=== PATIENT | female | born 1995 | race Caucasian/White ===

== ENCOUNTER 2017-04-11 06:24 | Inpatient (IN) | payer OTHER ==
[~2017-04-11] VITALS: Ht 157.5 cm; Wt 55.8 kg
--- NOTE | 2017-04-11 07:05 | RAD ---
INDICATION: RLQ PAIN ABNORMAL CT COMPARISON: CT from earlier same day TECHNIQUE: Grayscale and color ultrasound images uterus and adnexa. Transabdominal and transvaginal images obtained. FINDINGS: Uterus: 74 x 51 x 42 mm. Endometrial Stripe: 11 mm. Right Ovary: 45 x 38 x 37 mm. Left Ovary: 25 x 15 x 12 mm. Vascular flow identified to bilateral ovaries. Moderate free fluid is seen within the pelvis. Within the right adnexa there is a mixed echogenicity but predominantly hypoechoic lesion identified measuring approximately 35 x 34 mm. IMPRESSION: 1. Vascular flow seen to the bilateral ovaries. 2. Free fluid is seen within the pelvis. 3. There is a mixed echogenicity lesion within the right adnexa. The most likely cause would be a hemorrhagic cyst but other etiologies such as endometrioma are also within the differential. Would also correlate with hCG given the presence of the adnexal lesion. Follow-up could be obtained to ensure that this decreases in size. Electronically signed by: Cameron Stephens MD (04/11/2017 7:02 AM) [facility]
[2017-04-11] MEDS: IV NORMAL SALINE 1000ML BAG 1,000 ML IV SCH (07:27)
[2017-04-11] MEDS: MORPHINE SULFATE 2 MG/ML DISP.SYRIN. IV PRN ×5 (07:28→18:08)
[2017-04-11] MEDS: ONDANSETRON PF 4 MG/2 ML VIAL. IV PRN ×3 (07:28→19:29)
--- NOTE | 2017-04-11 08:51 | PDOC2 ---
CONSULT Date of Consult Date of Consult DATE: 04/11/17 TIME: 08:46 History of Present Illness Reason for Visit: 22 year old female who reports vomiting for about a week, then developed abdominal pain last night most prominent in the mid abdomen and RLQ. The pain has no exacerbating factors, improved with pain meds, denies fevers, chills. She reported to [facility] and was then transferred. Past Medical History Past Medical History "skeletal pain" Past Surgical History Past Surgical History wisdom teeth Social History <1 pack per day ALCOHOL: rare Current Medications Current Medications Current Medications Sodium Chloride 1,000 ml @ 75 mls/hr [id number] IV Last administered on 07:27; Start 04/11/17 at 07:00 Ondansetron HCl (Zofran) 4 mg PRN Q6HRS PRN IV NAUSEA/VOMITING Last administered on 04/11/17 07:28; Start 04/11/17 at 07:00 Morphine Sulfate 2 mg PRN Q2HR PRN IV PAIN Last administered on 04/11/17 07:28 ; Start 04/11/17 at 07:00 Allergies Allergies: Coded Allergies: No Known Drug Allergies (Unverified , 04/11/17) ROS General: No: Chills, Night Sweats, Fatigue, Malaise, Appetite, Other PSYCHOLOGICAL ROS: No: Anxiety, Behavioral Disorder, Concentration difficultie , Decreased libido, Depression, Disorientation, Hallucinations, Hostility, Irritablity, Memory difficulties, Mood Swings, Obsessive thoughts, Physical abuse, Sexual abuse, Sleep disturbances, Suicidal ideation, Other Eyes: No Blurry vision, No Decreased vision, No Double vision, No Dry eyes, No Excessive tearing, No Eye Pain, No Itchy Eyes, No Loss of vision, No Photophobia , No Scotomata, No Uses contacts, No Uses glasses, No Other HEENT: No: Heacaches, Visual Changes, Hearing change, Nasal congestion, Nasal discharge, Oral lesions, Sinus pain, Sore Throat, Epistaxis, Sneezing, Snoring, Tinnitus, Vertigo, Vocal changes, Other ALLERGY AND IMMUNOLOGY: No: Hives, Insect Bite Sensitivity, Itchy/Watery Eyes, Nasal Congestion, Post Nasal Drip, Seasonal Allergies, Other Hematological and Lymphatic: No: Bleeding Problems, Blood Clots, Blood Transfusions, Brusing, Night Sweats, Pallor, Swollen Lymph Nodes, Other ENDOCRINE: No: Breast Changes, Galactorrhea, Hair Pattern Changes, Hot Flashes , Malaise/lethargy, Mood Swings, Palpitations, Polydipsia/polyuria, Skin Changes , Temperature Intolerance, Unexpected Weight Changes, Other Respiratory: No: Cough, Hemoptysis, Orthopnea, Pleuritic Pain, Shortness of breath, SOB with excertion, Sputum Changes, Stridor, Tachypnea, Wheezing, Other Cardiovascular: No Chest Pain, No Palpitations, No Orthopnea, No Paroxysmal Noc. Dyspnea, No Edema, No Lt Headedness, No Other Gastrointestinal: Yes Nausea, Yes Vomiting, Yes Abdominal Pain Genitourinary: No Dysuria, No Frequency, No Incontinence, No Hematuria, No Retention, No Discharge, No Urgency, No Pain, No Flank Pain, No Other, No , No , No , No , No , No , No Musculoskeletal: No Gait Disturbance, No Joint Pain, No Joint Stiffness, No Joint Swelling, No Muscle Pain, No Muscular Weakness, No Pain In:, No Swelling In:, No Other Neurological: No Behavorial Changes, No Bowel/Bladder ControlChng, No Confusion , No Dizziness, No Gait Disturbance, No Headaches, No Impaired Coord/balance, No Memory Loss, No Numbness/Tingling, No Seizures, No Speech Problems, No Tremors, No Visual Changes, No Weakness, No Other Skin: No Dry Skin, No Eczema, No Hair Changes, No Lumps, No Mole Changes, No Mottling, No Nail Changes, No Pruritus, No Rash, No Skin Lesion Changes, No Other, No Acne Physical Exam General: Alert, Oriented X3 HEENT: Atraumatic Lungs: Clear to auscultation Abdomen: Soft (tender with palpation fairly diffusely, reports worse in RLQ, poss voluntary guarding) Extremities: No clubbing, No cyanosis Skin: No rashes, No breakdown Neuro: Normal gait Psych/Mental Status: Mental status NL MUSCULOSKELETAL: No joint tenderness, No deformity Vitals VITALS Vital Signs Date Time Temp Pulse Resp B/P (MAP) Pulse Ox O2 Delivery O2 Flow Rate FiO2 04/11/17 07:49 20 04/11/17 07:39 Room Air Images Images [facility] at [facility]; no inflammatory process, prox appendix normal, distal appendix difficult to visualize Assessment/Plan Assessment/Plan Abdominal pain, vomiting; It is difficult to be certain but her exam, labs, and CT do not seem consistent with acute appendicitis. She understands that testing is not definitive. No other etiology for her pain identified. Recommend repeat CBC today and in AM; if pain persists then will repeat CT scan with IV and oral contrast. TOSHIA VILLEDA MD Apr 11, 2017 08:51
[2017-04-11 10:03] LABS: BASO % 1 % (0-3); EOS % 3 % (0-3); LYMPH % 37 % (24-48); MEAN CORPUSCULAR HEMOGLOBIN 30 pg (25-35); MEAN CORPUSCULAR HGB CONC 33 g/dL (31-37); MEAN CORPUSCULAR VOLUME 89 fL (79-100); MONO % 11 % (0-9); NEUT % 50 % (31-73); PLATELET COUNT 274 x10^3/uL (140-400); RED BLOOD COUNT 4.05 x10^6/uL (3.50-5.40); RED CELL DISTRIBUTION WIDTH 12.5 % (11.5-14.5); WHITE BLOOD COUNT 8.2 x10^3/uL (4.0-11.0)
[2017-04-11 11:00] VITALS: BP 103/56
[2017-04-11 15:00] VITALS: BP 129/84
[2017-04-11] MEDS ORDERED: MORPHINE SULFATE 2 MG/ML DISP.SYRIN. IV PRN (15:15)
[2017-04-11] MEDS ORDERED: oxyCODONE IR 5 MG TABLET PO PRN (15:15)
--- NOTE | 2017-04-11 15:59 | HP ---
ADMIT DATE: 04/11/2017 CHIEF COMPLAINT: Left lower quadrant pain. HISTORY OF PRESENT ILLNESS: The patient is a 22-year-old woman in excellent state of health, who presented to the Emergency Room at [facility] with a 1-week history of abdominal pain. She related that initially it was kind of in her mid abdomen around the umbilicus, but with time settled in her right pelvic area. Pain is very severe. She endorses mild nausea, no vomiting, has normal palish bowel movement. Her periods completed about a week ago. She never has had pain like this before. She endorses subjective fevers as well as rigors towards the weekend, especially on Tuesday. Pain currently is not optimally controlled. PAST MEDICAL HISTORY: Back pain, currently being worked up. FAMILY HISTORY: No GI or MARBLE CLEANER problems known. 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 Smokes occasional cigarettes. No other drugs. ALLERGIES: No known drug allergies. MEDICATIONS: None. REVIEW OF SYSTEMS: Positive as per HPI. Rest of organ system review is essentially negative. PHYSICAL EXAMINATION: VITAL SIGNS: From today show a blood pressure of 103/56, heart rate of 80, respiratory rate at 18. She is afebrile. GENERAL: This is a 22-year-old woman, slim, alert and oriented, in moderate distress secondary to abdominal pain. She is lying in the bed in the position. HEENT: Shows no scleral icterus. NECK: Supple. LUNGS: Clear to auscultation bilaterally. HEART: Has regular rate and rhythm. ABDOMEN: Has positive bowel sounds, soft, moderate to marked tenderness to palpation, with moderate rebound throughout the abdomen. EXTREMITIES: Show no edema. SKIN: Warm, soft and dry. LABORATORY DATA: CBC with a WBC of 8.2, hemoglobin 12.0, platelets of 274. Chemistries at [facility] were within normal limits. Beta hCG negative. IMAGING: CT at [facility] without any significant findings to suggest appendicitis. Pelvic ultrasound obtained here showed vascular flow in bilateral ovaries, free fluid in the pelvis and a mixed echogenicity lesion within the right adnexa measuring 35 x 34 mm. ASSESSMENT AND PLAN: The patient is a 22-year-old presenting with severe pelvic pain. Findings point towards an ovarian origin. The probability of lesion being a hemorrhagic cyst is high, especially given free fluid in the pelvis. We will obtain a MARBLE CLEANER consult as well. General Surgery has seen her already. With no findings pointing towards appendicitis, surgery should not be first choice. Recommendations for observation were given. Pain control is difficult. We will increase morphine. I prefer, however, oxycodone as this lasts a little longer. A range of medication dosing was ordered. EMERY ZHAO MD DR: MOISÉS/ger JOB#: [id number] / [id number] GATO
[2017-04-11] MEDS ORDERED: oxyCODONE/APAP 5/325 1 TAB TABLET PO PRN (18:00)
--- NOTE | 2017-04-11 18:00 | PDOC2 ---
CONSULT Date of Consult Date of Consult DATE: 04/11/17 TIME: 17:54 Reason for Consult Reason for Consult: pelvic pain Referring Physician Referring Physician: Dr. Allen Identification/Chief Complaint Chief Complaint pelvic pain Problems: Source Source: Chart review, Patient History of Present Illness Reason for Visit: 22 y/o G0 presented to ED with c/o severe pelvic pain that started yesterday and continued to worsen. She also reports N/V and night sweats. Pt. denies fever, CP, SOB, dysuria, hematuria or change in bowel habits. Normal LMP . Menses every 30 days and lasts 5 days. No current control. Pelvic sono indicates complex ROV cyst with fluid in culde sac. Past Surgical History Past Surgical History: No pertinent history Social History <1 pack per day ALCOHOL: rare Current Medications Current Medications Current Medications Sodium Chloride 1,000 ml @ 75 mls/hr [id number] IV Last administered on 07:27; Start 04/11/17 at 07:00 Ondansetron HCl (Zofran) 4 mg PRN Q6HRS PRN IV NAUSEA/VOMITING Last administered on 04/11/17 12:24; Start 04/11/17 at 07:00 Morphine Sulfate 2 mg PRN Q2HR PRN IV PAIN Last administered on 04/11/17 15:10 ; Start 04/11/17 at 07:00; Stop 04/11/17 at 15:11; Status DC Morphine Sulfate 2 mg PRN Q2HR PRN IV PAIN - 2nd choice; Start 04/11/17 at 15: 15 Oxycodone HCl (Roxicodone) 5 mg Q4HRS PRN PO PAIN 1st choice Last administered on 04/11/17 16:12; Start 04/11/17 at 15:15 Morphine Sulfate 4 mg PRN Q2HR PRN IV PAIN - 2nd choice; Start 04/11/17 at 15: 15 Oxycodone HCl (Roxicodone) 10 mg Q4HRS PRN PO PAIN 1st choice; Start 04/11/17 at 15:15 Allergies Allergies: Coded Allergies: No Known Drug Allergies (Unverified , 04/11/17) ROS General: YES: Night Sweats, No: Chills, Fatigue, Malaise, Appetite, Other PSYCHOLOGICAL ROS: No: Anxiety, Behavioral Disorder, Concentration difficultie , Decreased libido, Depression, Disorientation, Hallucinations, Hostility, Irritablity, Memory difficulties, Mood Swings, Obsessive thoughts, Physical abuse, Sexual abuse, Sleep disturbances, Suicidal ideation, Other Eyes: No Blurry vision, No Decreased vision, No Double vision, No Dry eyes, No Excessive tearing, No Eye Pain, No Itchy Eyes, No Loss of vision, No Photophobia , No Scotomata, No Uses contacts, No Uses glasses, No Other HEENT: No: Heacaches, Visual Changes, Hearing change, Nasal congestion, Nasal discharge, Oral lesions, Sinus pain, Sore Throat, Epistaxis, Sneezing, Snoring, Tinnitus, Vertigo, Vocal changes, Other ALLERGY AND IMMUNOLOGY: No: Hives, Insect Bite Sensitivity, Itchy/Watery Eyes, Nasal Congestion, Post Nasal Drip, Seasonal Allergies, Other Hematological and Lymphatic: No: Bleeding Problems, Blood Clots, Blood Transfusions, Brusing, Night Sweats, Pallor, Swollen Lymph Nodes, Other ENDOCRINE: No: Breast Changes, Galactorrhea, Hair Pattern Changes, Hot Flashes , Malaise/lethargy, Mood Swings, Palpitations, Polydipsia/polyuria, Skin Changes , Temperature Intolerance, Unexpected Weight Changes, Other Breast: No New/Changing Breast Lumps, No Nipple changes, No Nipple discharge, No Other Respiratory: No: Cough, Hemoptysis, Orthopnea, Pleuritic Pain, Shortness of breath, SOB with excertion, Sputum Changes, Stridor, Tachypnea, Wheezing, Other Cardiovascular: No Chest Pain, No Palpitations, No Orthopnea, No Paroxysmal Noc. Dyspnea, No Edema, No Lt Headedness, No Other Gastrointestinal: Yes Nausea, Yes Vomiting, Yes Abdominal Pain, No Diarrhea, No Constipation, No Melena, No Hematochezia, No Other Genitourinary: No Dysuria, No Frequency, No Incontinence, No Hematuria, No Retention, No Discharge, No Urgency, No Pain, No Flank Pain, No Other, No , No , No , No , No , No , No Musculoskeletal: No Gait Disturbance, No Joint Pain, No Joint Stiffness, No Joint Swelling, No Muscle Pain, No Muscular Weakness, No Pain In:, No Swelling In:, No Other Neurological: No Behavorial Changes, No Bowel/Bladder ControlChng, No Confusion , No Dizziness, No Gait Disturbance, No Headaches, No Impaired Coord/balance, No Memory Loss, No Numbness/Tingling, No Seizures, No Speech Problems, No Tremors, No Visual Changes, No Weakness, No Other Skin: No Dry Skin, No Eczema, No Hair Changes, No Lumps, No Mole Changes, No Mottling, No Nail Changes, No Pruritus, No Rash, No Skin Lesion Changes, No Other, No Acne Physical Exam General: Alert, Oriented X3, Cooperative HEENT: Atraumatic Lungs: Clear to auscultation Heart: Regular rate Abdomen: Soft, No masses, Other (gaurding and rebound tenderness in lower abd region.) Vitals VITALS Vital Signs Date Time Temp Pulse Resp B/P (MAP) Pulse Ox O2 Delivery O2 Flow Rate FiO2 04/11/17 16:12 Room Air 04/11/17 15:00 98.0 74 18 129/84 (99) 97 98.0 Labs Labs Laboratory Tests Test 04/11/17 09:40 White Blood Count 8.2 x10^3/uL (4.0-11.0) Red Blood Count 4.05 x10^6/uL (3.50-5.40) Hemoglobin 12.0 g/dL (12.0-15.5) Hematocrit 36.0 % (36.0-47.0) Mean Corpuscular Volume 89 fL (79-100) Mean Corpuscular Hemoglobin 30 pg (25-35) Mean Corpuscular Hemoglobin Concent 33 g/dL (31-37) Red Cell Distribution Width 12.5 % (11.5-14.5) Platelet Count 274 x10^3/uL (140-400) Neutrophils (%) (Auto) 50 % (31-73) Lymphocytes (%) (Auto) 37 % (24-48) Monocytes (%) (Auto) 11 % (0-9) Eosinophils (%) (Auto) 3 % (0-3) Basophils (%) (Auto) 1 % (0-3) Neutrophils # (Auto) 4.1 x10^3uL (1.8-7.7) Lymphocytes # (Auto) 3.0 x10^3/uL (1.0-4.8) Monocytes # (Auto) 0.9 x10^3/uL (0.0-1.1) Eosinophils # (Auto) 0.2 x10^3/uL (0.0-0.7) Basophils # (Auto) 0.0 x10^3/uL (0.0-0.2) Laboratory Tests Test 04/11/17 09:40 White Blood Count 8.2 x10^3/uL (4.0-11.0) Red Blood Count 4.05 x10^6/uL (3.50-5.40) Hemoglobin 12.0 g/dL (12.0-15.5) Hematocrit 36.0 % (36.0-47.0) Mean Corpuscular Volume 89 fL (79-100) Mean Corpuscular Hemoglobin 30 pg (25-35) Mean Corpuscular Hemoglobin Concent 33 g/dL (31-37) Red Cell Distribution Width 12.5 % (11.5-14.5) Platelet Count 274 x10^3/uL (140-400) Neutrophils (%) (Auto) 50 % (31-73) Lymphocytes (%) (Auto) 37 % (24-48) Monocytes (%) (Auto) 11 % (0-9) Eosinophils (%) (Auto) 3 % (0-3) Basophils (%) (Auto) 1 % (0-3) Neutrophils # (Auto) 4.1 x10^3uL (1.8-7.7) Lymphocytes # (Auto) 3.0 x10^3/uL (1.0-4.8) Monocytes # (Auto) 0.9 x10^3/uL (0.0-1.1) Eosinophils # (Auto) 0.2 x10^3/uL (0.0-0.7) Basophils # (Auto) 0.0 x10^3/uL (0.0-0.2) Assessment/Plan Assessment/Plan A: Complex ROV cyst with fluid in culde sac P: Pain management and prep for LPSC ROV cystectomy tomorrow. NPO after midnight. Thank you for consult. LUCRECIA ALONSO Jr, MD Apr 11, 2017 18:00
[2017-04-11 19:00] VITALS: BP 99/55
[2017-04-11] MEDS: oxyCODONE/APAP 5/325 1 TAB TABLET PO PRN (21:24)
[2017-04-11 23:20] VITALS: BP 119/70
[2017-04-12] VITALS (13 sets, daily range): BP systolic 90–126; BP diastolic 34–70
[2017-04-12] MEDS: IV NORMAL SALINE 1000ML BAG 1,000 ML IV SCH ×3 (00:39→23:00)
[2017-04-12] MEDS: MORPHINE SULFATE 2 MG/ML DISP.SYRIN. IV PRN ×4 (02:47→14:38)
[2017-04-12 05:40] LABS: BASO % 1 % (0-3); EOS % 5 % (0-3); HEMATOCRIT 34.6 % (36.0-47.0); HEMOGLOBIN 11.6 g/dL (12.0-15.5); LYMPH # 2.9 x10^3/uL (1.0-4.8); LYMPH % 46 % (24-48); MEAN CORPUSCULAR HEMOGLOBIN 30 pg (25-35); MEAN CORPUSCULAR HGB CONC 33 g/dL (31-37); MEAN CORPUSCULAR VOLUME 89 fL (79-100); MONO % 12 % (0-9); NEUT % 37 % (31-73); PLATELET COUNT 245 x10^3/uL (140-400); RED BLOOD COUNT 3.87 x10^6/uL (3.50-5.40); RED CELL DISTRIBUTION WIDTH 12.3 % (11.5-14.5); WHITE BLOOD COUNT 6.4 x10^3/uL (4.0-11.0)
[2017-04-12] MEDS: ONDANSETRON PF 4 MG/2 ML VIAL. IV PRN (07:24)
--- NOTE | 2017-04-12 09:36 | PDOC ---
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 Labs reviewed, vital signs reviewed - okay sHe requests excuse from work, she works in the plan for a flight back on Tuesday. 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 plAn of care: LPSC ROV cystectomy today Vitals Vitals Vital Signs Date Time Temp Pulse Resp B/P (MAP) Pulse Ox O2 Delivery O2 Flow Rate FiO2 04/12/17 07:55 Room Air 04/12/17 07:00 98.2 84 16 113/70 (84) 99 98.2 Physical Exam General: Alert, Oriented X3, Cooperative Heart: Regular rate Abdomen: Soft, No masses, Other (gaurding and rebound tenderness in lower abd region.) Extremities: No clubbing, No cyanosis Skin: No rashes, No breakdown Labs LABS Laboratory Tests Test 04/11/17 09:40 04/12/17 05:00 White Blood Count 8.2 x10^3/uL (4.0-11.0) 6.4 x10^3/uL (4.0-11.0) Red Blood Count 4.05 x10^6/uL (3.50-5.40) 3.87 x10^6/uL (3.50-5.40) Hemoglobin 12.0 g/dL (12.0-15.5) 11.6 g/dL (12.0-15.5) Hematocrit 36.0 % (36.0-47.0) 34.6 % (36.0-47.0) Mean Corpuscular Volume 89 fL (79-100) 89 fL (79-100) Mean Corpuscular Hemoglobin 30 pg (25-35) 30 pg (25-35) Mean Corpuscular Hemoglobin Concent 33 g/dL (31-37) 33 g/dL (31-37) Red Cell Distribution Width 12.5 % (11.5-14.5) 12.3 % (11.5-14.5) Platelet Count 274 x10^3/uL (140-400) 245 x10^3/uL (140-400) Neutrophils (%) (Auto) 50 % (31-73) 37 % (31-73) Lymphocytes (%) (Auto) 37 % (24-48) 46 % (24-48) Monocytes (%) (Auto) 11 % (0-9) 12 % (0-9) Eosinophils (%) (Auto) 3 % (0-3) 5 % (0-3) Basophils (%) (Auto) 1 % (0-3) 1 % (0-3) Neutrophils # (Auto) 4.1 x10^3uL (1.8-7.7) 2.4 x10^3uL (1.8-7.7) Lymphocytes # (Auto) 3.0 x10^3/uL (1.0-4.8) 2.9 x10^3/uL (1.0-4.8) Monocytes # (Auto) 0.9 x10^3/uL (0.0-1.1) 0.8 x10^3/uL (0.0-1.1) Eosinophils # (Auto) 0.2 x10^3/uL (0.0-0.7) 0.3 x10^3/uL (0.0-0.7) Basophils # (Auto) 0.0 x10^3/uL (0.0-0.2) 0.0 x10^3/uL (0.0-0.2) Review of Systems Review of Systems Positive for abdominal pain no shortness of breath no chest pain no diarrhea no vomiting no lightheadedness no dizziness Comment Review of Relevant I have reviewed the following items hien (where applicable) has been applied. Labs Laboratory Tests Test 04/11/17 09:40 04/12/17 05:00 White Blood Count 8.2 x10^3/uL (4.0-11.0) 6.4 x10^3/uL (4.0-11.0) Red Blood Count 4.05 x10^6/uL (3.50-5.40) 3.87 x10^6/uL (3.50-5.40) Hemoglobin 12.0 g/dL (12.0-15.5) 11.6 g/dL (12.0-15.5) Hematocrit 36.0 % (36.0-47.0) 34.6 % (36.0-47.0) Mean Corpuscular Volume 89 fL (79-100) 89 fL (79-100) Mean Corpuscular Hemoglobin 30 pg (25-35) 30 pg (25-35) Mean Corpuscular Hemoglobin Concent 33 g/dL (31-37) 33 g/dL (31-37) Red Cell Distribution Width 12.5 % (11.5-14.5) 12.3 % (11.5-14.5) Platelet Count 274 x10^3/uL (140-400) 245 x10^3/uL (140-400) Neutrophils (%) (Auto) 50 % (31-73) 37 % (31-73) Lymphocytes (%) (Auto) 37 % (24-48) 46 % (24-48) Monocytes (%) (Auto) 11 % (0-9) 12 % (0-9) Eosinophils (%) (Auto) 3 % (0-3) 5 % (0-3) Basophils (%) (Auto) 1 % (0-3) 1 % (0-3) Neutrophils # (Auto) 4.1 x10^3uL (1.8-7.7) 2.4 x10^3uL (1.8-7.7) Lymphocytes # (Auto) 3.0 x10^3/uL (1.0-4.8) 2.9 x10^3/uL (1.0-4.8) Monocytes # (Auto) 0.9 x10^3/uL (0.0-1.1) 0.8 x10^3/uL (0.0-1.1) Eosinophils # (Auto) 0.2 x10^3/uL (0.0-0.7) 0.3 x10^3/uL (0.0-0.7) Basophils # (Auto) 0.0 x10^3/uL (0.0-0.2) 0.0 x10^3/uL (0.0-0.2) Laboratory Tests Test 04/11/17 09:40 04/12/17 05:00 White Blood Count 8.2 x10^3/uL (4.0-11.0) 6.4 x10^3/uL (4.0-11.0) Red Blood Count 4.05 x10^6/uL (3.50-5.40) 3.87 x10^6/uL (3.50-5.40) Hemoglobin 12.0 g/dL (12.0-15.5) 11.6 g/dL (12.0-15.5) Hematocrit 36.0 % (36.0-47.0) 34.6 % (36.0-47.0) Mean Corpuscular Volume 89 fL (79-100) 89 fL (79-100) Mean Corpuscular Hemoglobin 30 pg (25-35) 30 pg (25-35) Mean Corpuscular Hemoglobin Concent 33 g/dL (31-37) 33 g/dL (31-37) Red Cell Distribution Width 12.5 % (11.5-14.5) 12.3 % (11.5-14.5) Platelet Count 274 x10^3/uL (140-400) 245 x10^3/uL (140-400) Neutrophils (%) (Auto) 50 % (31-73) 37 % (31-73) Lymphocytes (%) (Auto) 37 % (24-48) 46 % (24-48) Monocytes (%) (Auto) 11 % (0-9) 12 % (0-9) Eosinophils (%) (Auto) 3 % (0-3) 5 % (0-3) Basophils (%) (Auto) 1 % (0-3) 1 % (0-3) Neutrophils # (Auto) 4.1 x10^3uL (1.8-7.7) 2.4 x10^3uL (1.8-7.7) Lymphocytes # (Auto) 3.0 x10^3/uL (1.0-4.8) 2.9 x10^3/uL (1.0-4.8) Monocytes # (Auto) 0.9 x10^3/uL (0.0-1.1) 0.8 x10^3/uL (0.0-1.1) Eosinophils # (Auto) 0.2 x10^3/uL (0.0-0.7) 0.3 x10^3/uL (0.0-0.7) Basophils # (Auto) 0.0 x10^3/uL (0.0-0.2) 0.0 x10^3/uL (0.0-0.2) Medications Current Medications Sodium Chloride 1,000 ml @ 75 mls/hr [id number] IV Last administered on 00:39; Start 04/11/17 at 07:00 Ondansetron HCl (Zofran) 4 mg PRN Q6HRS PRN IV NAUSEA/VOMITING Last administered on 04/12/17 07:24; Start 04/11/17 at 07:00 Morphine Sulfate 2 mg PRN Q2HR PRN IV PAIN Last administered on 04/11/17 15:10 ; Start 04/11/17 at 07:00; Stop 04/11/17 at 15:11; Status DC Morphine Sulfate 2 mg PRN Q2HR PRN IV PAIN - 2nd choice Last administered on 00:40; Start 04/11/17 at 15:15 Oxycodone HCl (Roxicodone) 5 mg Q4HRS PRN PO PAIN 1st choice Last administered on 04/11/17 16:12; Start 04/11/17 at 15:15 Morphine Sulfate 4 mg PRN Q2HR PRN IV PAIN - 2nd choice Last administered on 07:29; Start 04/11/17 at 15:15 Oxycodone HCl (Roxicodone) 10 mg Q4HRS PRN PO PAIN 1st choice; Start 04/11/17 at 15:15 Oxycodone/ Acetaminophen (Percocet 5/325) 1 tab PRN Q4HRS PRN PO PAIN; Start 04/11/17 at 18:00 Oxycodone/ Acetaminophen (Percocet 5/325) 2 tab PRN Q4HRS PRN PO PAIN Last administered on 04/11/17 21:24; Start 04/11/17 at 18:00 Vitals/I & O Vital Sign - Last 24 Hours 04/11/17 04/11/17 04/11/17 04/11/17 09:43 11:00 12:26 14:00 Temp 98.3 98.3 Pulse 80 Resp 18 B/P (MAP) 103/56 (72) Pulse Ox 97 O2 Delivery Room Air Room Air Room Air Room Air 04/11/17 04/11/17 04/11/174/17 15:00 15:10 16:12 17:30 Temp 98.0 98.0 Pulse 74 Resp 18 B/P (MAP) 129/84 (99) Pulse Ox 97 O2 Delivery Room Air Room Air Room Air Room Air 04/11/17 04/11/17 04/11/17 04/11/17 18:08 18:40 19:00 19:30 Temp 98.4 98.4 Pulse 75 Resp 18 18 B/P (MAP) 99/55 (70) Pulse Ox 98 O2 Delivery Room Air Room Air Room Air 04/11/17 04/11/17 04/11/17 04/12/17 21:24 22:25 23:20 00:40 Temp 98.8 98.8 Pulse 73 Resp 16 18 18 18 B/P (MAP) 119/70 (86) Pulse Ox 99 O2 Delivery Room Air Room Air Room Air Room Air 04/12/17 04/12/17 04/12/17 04/12/17 01:10 02:47 02:55 04:50 Temp 97.7 97.7 Pulse 73 Resp 18 18 18 16 B/P (MAP) 106/42 (63) Pulse Ox 97 O2 Delivery Room Air Room Air Room Air Room Air 04/12/17 04/12/17 04/12/17 04/12/17 07:00 07:29 07:30 07:55 Temp 98.2 98.2 Pulse 84 Resp 16 B/P (MAP) 113/70 (84) Pulse Ox 99 O2 Delivery Room Air Room Air Room Air Room Air Intake and Output 04/11/17 04/11/17 04/12/17 15:00 23:00 07:00 Intake Total 120 ml 1422 ml Balance 120 ml 1422 ml ANNIE LEDEZMA MD Apr 12, 2017 09:36
[2017-04-12] MEDS ORDERED: MIDAZOLAM HCL/PF 2 MG/2 ML VIAL. ONE (10:01)
[2017-04-12] MEDS ORDERED: LIDOCAINE 2% PF Vial for OR 5 ML VIAL. ONE (10:02)
[2017-04-12] MEDS ORDERED: FAMOTIDINE 20 MG/2 ML VIAL ONE (10:02)
[2017-04-12] MEDS ORDERED: ONDANSETRON PF 4 MG/2 ML VIAL. ONE (10:02)
[2017-04-12] MEDS ORDERED: fentaNYL PF VIAL 100 MCG/2 ML VIAL ONE (10:02)
[2017-04-12] MEDS ORDERED: PROPOFOL 20 ML IV ONE (10:02)
[2017-04-12] MEDS ORDERED: ISOFLURANE 61 TO 120 MINUTES. IH ONE (10:02)
[2017-04-12] MEDS ORDERED: DEXAMETHASONE SOD PHOS 20 MG/5 ML VIAL. ONE (10:02)
[2017-04-12] MEDS ORDERED: ROCURONIUM 50 MG/5 ML VIAL. ONE (10:02)
[2017-04-12] MEDS ORDERED: BUPIVAC MPF-EPI 0.5%-1:200000 30 ML VIAL. ONE (11:05)
[2017-04-12] MEDS ORDERED: SURGICEL HEMOSTAT 4X8 EACH. ONE (11:05)
[2017-04-12] MEDS ORDERED: IV RINGERS,LACTATED 1000ML 1,000 ML IV SCH (11:29)
[2017-04-12] MEDS ORDERED: HYDROmorphone 2 MG/ML VIAL IV PRN (11:30)
[2017-04-12] MEDS ORDERED: fentaNYL PF VIAL 100 MCG/2 ML VIAL IV PRN (11:30)
[2017-04-12] MEDS ORDERED: ONDANSETRON PF 4 MG/2 ML VIAL. IV PRN (11:30)
[2017-04-12] MEDS ORDERED: PROCHLORPERAZINE 10 MG/2 ML VIAL. IV PRN (11:30)
[2017-04-12] MEDS ORDERED: LIDOCAINE 1% PF 2 ML VIAL. ID PRN (11:30)
[2017-04-12] MEDS ORDERED: MORPHINE SULFATE 2 MG/ML DISP.SYRIN. IV PRN (11:30)
[2017-04-12] MEDS ORDERED: NEOSTIGMINE 10 MG/10 ML VIAL. ONE (13:02)
[2017-04-12] MEDS ORDERED: GLYCOPYRROLATE 1 MG/5 ML VIAL. ONE (13:03)
--- NOTE | 2017-04-12 13:21 | PDOC ---
BRIEF OPERATIVE NOTE Date: Apr 12, 2017 Pre-Op Diagnosis ROV cyst Post-Op Diagnosis Same Procedure Performed [facility] ROV Cystectomy Surgeon Dr. Madison Anesthesia Type: General Blood Loss Less than 10 ml Specimens Obtained ROV cyst wall Findings nml size uterus, nml fallopian tubes zoila., nml WILMAN; ROV cyst 6 cm size Complications none Operative Note see dictation LUCRECIA MADISON Jr, MD Apr 12, 2017 13:21
--- NOTE | 2017-04-12 13:22 | DISCH ---
DISCHARGE INSTRUCTIONS Condition on Discharge Condition on Discharge: Stable Activity After Discharge Activity Instructions for Disc: Activity as tolerated Lifting Instructions after Dis: No heavy lifting Driving Instructions after Dis: Do not drive today Diet after Discharge Diet after Discharge: Regular Contacting the DRRaul after DC Call your doctor for: Concerns you may have Follow-Up Follow up with: Logistics Planning Engineer in 1 week at outside location since traveling this weekend . LUCRECIA ALONSO Jr, MD Apr 12, 2017 13:22
[2017-04-12] MEDS: fentaNYL PF VIAL 100 MCG/2 ML VIAL IV PRN ×2 (13:33→14:08)
--- NOTE | 2017-04-12 14:23 | OP ---
DATE OF SURGERY: PREOPERATIVE DIAGNOSIS: Right ovarian cyst. POSTOPERATIVE DIAGNOSIS: Right ovarian cyst. PROCEDURE: Laparoscopic right ovarian cystectomy. SURGEON: Yair Madison MD. ANESTHESIA: GETA. ESTIMATED BLOOD LOSS: Less than 10 mL. COMPLICATIONS: None. FINDINGS: Normal sized uterus, normal fallopian tubes bilaterally, normal left ovary. Right ovarian cyst of about 6 cm size. Appendix appeared normal. COMPLICATIONS: None. SUMMARY: A 22-year-old 0 who presented in abdominal pain. The patient was then found to have a complex right ovarian cyst with possible fluid in the abdomen. The patient was counseled on the risks, benefits and expectations for laparoscopic right ovarian cystectomy and desired to proceed. DESCRIPTION OF PROCEDURE: The patient was taken to surgery suite and placed in dorsal lithotomy position. She was prepped with Betadine like vaginal prep and ChloraPrep for abdominal prep. Barron speculum was placed vaginally. Anterior lip of cervix grasped with single tooth tenaculum. Uterine acorn manipulator was then placed. The bivalve speculum was removed. Attention was now placed on abdomen. Small transverse skin incision made with scalpel just below the umbilicus. The Veress needle was then placed through the infraumbilical incision site. The abdomen was allowed to insufflate up to 1-1/2 liters CO2 gas. The Veress needle was then removed. A 5 mm trocar was placed. The scope was positioned. The uterus appeared normal size. Fallopian tubes appeared normal bilaterally. Left ovary appeared normal. Right ovary demonstrated 6 cm size cyst. The appendix appeared normal. Two incisions were made in the left lower quadrant with a scalpel, in which an 8-mm and 5 mm trocars were placed. With aid of graspers and the EndoShears, the right ovarian cyst was incised and drained with suction irrigation of clear fluid. A portion of the cyst wall was removed with the aid of EndoShears with cautery. The remaining cyst wall was fulgurated with monopolar cautery. The area was hemostatic. This was verified with suction irrigation, small amount of normal saline was left in posterior cul-de-sac. The trocars were then removed under direct visualization. The abdomen was allowed to deflate as much as possible along with mechanical manipulation. The three skin incisions were reapproximated using 4-0 Vicryl suture in subcuticular manner. 0.5% lidocaine with epinephrine was injected at each incision site. The uterine acorn manipulator and single tooth tenaculum were removed. The patient tolerated procedure well and was taken to recovery room in stable condition. Sponge and needle count correct x 3. YAIR MADISON MD DR: ALL/ger JOB#: [id number] / [id number]
[2017-04-12] MEDS: oxyCODONE/APAP 5/325 1 TAB TABLET PO PRN ×2 (16:42→22:28)
[2017-04-12] MEDS: oxyCODONE IR 5 MG TABLET PO PRN (19:44)
[2017-04-13 03:06] VITALS: BP 90/52
[2017-04-13] MEDS: oxyCODONE IR 5 MG TABLET PO PRN ×2 (03:33→12:42)
[2017-04-13 05:55] LABS: BASO % 0 % (0-3); EOS % 1 % (0-3); HEMATOCRIT 34.7 % (36.0-47.0); HEMOGLOBIN 11.7 g/dL (12.0-15.5); LYMPH # 1.6 x10^3/uL (1.0-4.8); LYMPH % 20 % (24-48); MEAN CORPUSCULAR HEMOGLOBIN 30 pg (25-35); MEAN CORPUSCULAR HGB CONC 34 g/dL (31-37); MEAN CORPUSCULAR VOLUME 89 fL (79-100); MONO % 9 % (0-9); NEUT % 70 % (31-73); PLATELET COUNT 251 x10^3/uL (140-400); RED BLOOD COUNT 3.93 x10^6/uL (3.50-5.40); RED CELL DISTRIBUTION WIDTH 12.5 % (11.5-14.5); WHITE BLOOD COUNT 7.8 x10^3/uL (4.0-11.0)
[2017-04-13 06:29] LABS: CALCIUM 8.3 mg/dL (8.5-10.1); CREATININE 0.7 mg/dL (0.6-1.0); GFR 104.6; POTASSIUM 3.7 mmol/L (3.5-5.1)
[2017-04-13 07:00] VITALS: BP 110/63
[2017-04-13] MEDS: oxyCODONE/APAP 5/325 1 TAB TABLET PO PRN ×2 (07:43→15:50)
[2017-04-13 11:00] VITALS: BP 102/55
[2017-04-13] MEDS: IV NORMAL SALINE 1000ML BAG 1,000 ML IV SCH (12:20)
--- NOTE | 2017-04-13 14:50 | PDOC ---
PROGRESS NOTES Chief Complaint Chief Complaint Complex ROV cyst Pelvic pain Abdominal pain History of Present Illness History of Present Illness Pt was seen at the bedside. She was sitting up in bed, dressed in hospital attire. She still has some abdominal pain, with some nausea. Vitals Vitals Vital Signs Date Time Temp Pulse Resp B/P (MAP) Pulse Ox O2 Delivery O2 Flow Rate FiO2 04/13/17 12:42 97 Room Air 04/13/17 11:00 97.7 74 18 102/55 (71) 97.7 04/12/17 20:00 10.0 Physical Exam Physical Exam Psych: Mood stated as "good", affect slightly blunted Eyes: sclera anicteric, no conjunctival injection General: Alert, Cooperative, No acute distress Extremities: No clubbing, No cyanosis Skin: No rashes, No breakdown Labs LABS Laboratory Tests Test 04/13/17 05:15 White Blood Count 7.8 x10^3/uL (4.0-11.0) Red Blood Count 3.93 x10^6/uL (3.50-5.40) Hemoglobin 11.7 g/dL (12.0-15.5) Hematocrit 34.7 % (36.0-47.0) Mean Corpuscular Volume 89 fL (79-100) Mean Corpuscular Hemoglobin 30 pg (25-35) Mean Corpuscular Hemoglobin Concent 34 g/dL (31-37) Red Cell Distribution Width 12.5 % (11.5-14.5) Platelet Count 251 x10^3/uL (140-400) Neutrophils (%) (Auto) 70 % (31-73) Lymphocytes (%) (Auto) 20 % (24-48) Monocytes (%) (Auto) 9 % (0-9) Eosinophils (%) (Auto) 1 % (0-3) Basophils (%) (Auto) 0 % (0-3) Neutrophils # (Auto) 5.5 x10^3uL (1.8-7.7) Lymphocytes # (Auto) 1.6 x10^3/uL (1.0-4.8) Monocytes # (Auto) 0.7 x10^3/uL (0.0-1.1) Eosinophils # (Auto) 0.1 x10^3/uL (0.0-0.7) Basophils # (Auto) 0.0 x10^3/uL (0.0-0.2) Sodium Level 139 mmol/L (136-145) Potassium Level 3.7 mmol/L (3.5-5.1) Chloride Level 105 mmol/L (98-107) Carbon Dioxide Level 25 mmol/L (21-32) Anion Gap 9 (6-14) Blood Urea Nitrogen 6 mg/dL (7-20) Creatinine 0.7 mg/dL (0.6-1.0) Estimated GFR (Cockcroft-Gault) 104.6 Glucose Level 99 mg/dL (70-99) Calcium Level 8.3 mg/dL (8.5-10.1) Review of Systems Review of Systems Admits to some nausea. Denies fever or chills Assessment and Plan Assessmemt and Plan ASSESSMENT: Complex ROV cyst with fluid in culde sac Pelvic pain Abdominal pain PLAN: Appreciate any further input from specialists PT/OT D/C to home Continue home meds Follow up with [facility] Problems: Comment Review of Relevant I have reviewed the following items hien (where applicable) has been applied. Labs Laboratory Tests Test 04/12/17 05:00 04/13/17 05:15 White Blood Count 6.4 x10^3/uL (4.0-11.0) 7.8 x10^3/uL (4.0-11.0) Red Blood Count 3.87 x10^6/uL (3.50-5.40) 3.93 x10^6/uL (3.50-5.40) Hemoglobin 11.6 g/dL (12.0-15.5) 11.7 g/dL (12.0-15.5) Hematocrit 34.6 % (36.0-47.0) 34.7 % (36.0-47.0) Mean Corpuscular Volume 89 fL (79-100) 89 fL (79-100) Mean Corpuscular Hemoglobin 30 pg (25-35) 30 pg (25-35) Mean Corpuscular Hemoglobin Concent 33 g/dL (31-37) 34 g/dL (31-37) Red Cell Distribution Width 12.3 % (11.5-14.5) 12.5 % (11.5-14.5) Platelet Count 245 x10^3/uL (140-400) 251 x10^3/uL (140-400) Neutrophils (%) (Auto) 37 % (31-73) 70 % (31-73) Lymphocytes (%) (Auto) 46 % (24-48) 20 % (24-48) Monocytes (%) (Auto) 12 % (0-9) 9 % (0-9) Eosinophils (%) (Auto) 5 % (0-3) 1 % (0-3) Basophils (%) (Auto) 1 % (0-3) 0 % (0-3) Neutrophils # (Auto) 2.4 x10^3uL (1.8-7.7) 5.5 x10^3uL (1.8-7.7) Lymphocytes # (Auto) 2.9 x10^3/uL (1.0-4.8) 1.6 x10^3/uL (1.0-4.8) Monocytes # (Auto) 0.8 x10^3/uL (0.0-1.1) 0.7 x10^3/uL (0.0-1.1) Eosinophils # (Auto) 0.3 x10^3/uL (0.0-0.7) 0.1 x10^3/uL (0.0-0.7) Basophils # (Auto) 0.0 x10^3/uL (0.0-0.2) 0.0 x10^3/uL (0.0-0.2) Sodium Level 139 mmol/L (136-145) Potassium Level 3.7 mmol/L (3.5-5.1) Chloride Level 105 mmol/L (98-107) Carbon Dioxide Level 25 mmol/L (21-32) Anion Gap 9 (6-14) Blood Urea Nitrogen 6 mg/dL (7-20) Creatinine 0.7 mg/dL (0.6-1.0) Estimated GFR (Cockcroft-Gault) 104.6 Glucose Level 99 mg/dL (70-99) Calcium Level 8.3 mg/dL (8.5-10.1) Laboratory Tests Test 04/13/17 05:15 White Blood Count 7.8 x10^3/uL (4.0-11.0) Red Blood Count 3.93 x10^6/uL (3.50-5.40) Hemoglobin 11.7 g/dL (12.0-15.5) Hematocrit 34.7 % (36.0-47.0) Mean Corpuscular Volume 89 fL (79-100) Mean Corpuscular Hemoglobin 30 pg (25-35) Mean Corpuscular Hemoglobin Concent 34 g/dL (31-37) Red Cell Distribution Width 12.5 % (11.5-14.5) Platelet Count 251 x10^3/uL (140-400) Neutrophils (%) (Auto) 70 % (31-73) Lymphocytes (%) (Auto) 20 % (24-48) Monocytes (%) (Auto) 9 % (0-9) Eosinophils (%) (Auto) 1 % (0-3) Basophils (%) (Auto) 0 % (0-3) Neutrophils # (Auto) 5.5 x10^3uL (1.8-7.7) Lymphocytes # (Auto) 1.6 x10^3/uL (1.0-4.8) Monocytes # (Auto) 0.7 x10^3/uL (0.0-1.1) Eosinophils # (Auto) 0.1 x10^3/uL (0.0-0.7) Basophils # (Auto) 0.0 x10^3/uL (0.0-0.2) Sodium Level 139 mmol/L (136-145) Potassium Level 3.7 mmol/L (3.5-5.1) Chloride Level 105 mmol/L (98-107) Carbon Dioxide Level 25 mmol/L (21-32) Anion Gap 9 (6-14) Blood Urea Nitrogen 6 mg/dL (7-20) Creatinine 0.7 mg/dL (0.6-1.0) Estimated GFR (Cockcroft-Gault) 104.6 Glucose Level 99 mg/dL (70-99) Calcium Level 8.3 mg/dL (8.5-10.1) Medications Current Medications Sodium Chloride 1,000 ml @ 75 mls/hr [id number] IV Last administered on 12:20; Start 04/11/17 at 07:00 Ondansetron HCl (Zofran) 4 mg PRN Q6HRS PRN IV NAUSEA/VOMITING Last administered on 04/12/17 07:24; Start 04/11/17 at 07:00 Morphine Sulfate 2 mg PRN Q2HR PRN IV PAIN Last administered on 04/11/17 15:10 ; Start 04/11/17 at 07:00; Stop 04/11/17 at 15:11; Status DC Morphine Sulfate 2 mg PRN Q2HR PRN IV PAIN - 2nd choice Last administered on 00:40; Start 04/11/17 at 15:15 Oxycodone HCl (Roxicodone) 5 mg Q4HRS PRN PO PAIN 1st choice Last administered on 04/11/17 16:12; Start 04/11/17 at 15:15 Morphine Sulfate 4 mg PRN Q2HR PRN IV PAIN - 2nd choice Last administered on 14:38; Start 04/11/17 at 15:15 Oxycodone HCl (Roxicodone) 10 mg Q4HRS PRN PO PAIN 1st choice Last administered on 04/13/17 12:42; Start 04/11/17 at 15:15 Oxycodone/ Acetaminophen (Percocet 5/325) 1 tab PRN Q4HRS PRN PO PAIN; Start 04/11/17 at 18:00 Oxycodone/ Acetaminophen (Percocet 5/325) 2 tab PRN Q4HRS PRN PO PAIN Last administered on 04/13/17 07:43; Start 04/11/17 at 18:00 Midazolam HCl (Versed) 2 mg STK-MED ONCE .ROUTE ; Start 04/12/17 at 10:01; Stop 04/12/17 at 10:02; Status DC Fentanyl Citrate (Fentanyl 2ml Vial) 100 mcg STK-MED ONCE .ROUTE ; Start at 10:02; Stop 04/12/17 at 10:03; Status DC Rocuronium [place] (Zemuron) 50 mg STK-MED ONCE .ROUTE ; Start 04/12/17 at 10:02 ; Stop 04/12/17 at 10:03; Status DC Isoflurane (Isoflurane) 60 ml STK-MED ONCE IH ; Start 04/12/17 at 10:02; Stop 04/12/17 at 10:03; Status DC Dexamethasone Sodium Phosphate (Decadron) 20 mg STK-MED ONCE .ROUTE ; Start 04/12/17 at 10:02; Stop 04/12/17 at 10:03; Status DC Propofol 20 ml @ As Directed STK-MED ONCE IV ; Start 04/12/17 at 10:02; Stop at 10:03; Status DC Lidocaine HCl (Lidocaine Pf 2% Vial) 5 ml STK-MED ONCE .ROUTE ; Start 04/12/17 at 10:02; Stop 04/12/17 at 10:03; Status DC Ondansetron HCl (Zofran) 4 mg STK-MED ONCE .ROUTE ; Start 04/12/17 at 10:02; Stop 04/12/17 at 10:03; Status DC Famotidine (Pepcid Vial) 20 mg STK-MED ONCE .ROUTE ; Start 04/12/17 at 10:02; Stop 04/12/17 at 10:03; Status DC Bupivacaine HCl/ Epinephrine Bitart (Sensorcain-Mpf Epi 0.5%-1:[id number]) 30 ml STK -MED ONCE .ROUTE Last administered on 04/12/17 12:38; Start 04/12/17 at 11:05 ; Stop 04/12/17 at 11:06; Status DC Cellulose 1 each STK-MED ONCE .ROUTE ; Start 04/12/17 at 11:05; Stop 04/12/17 at 11:06; Status DC Ondansetron HCl (Zofran) 4 mg PRN Q6HRS PRN IV NAUSEA/VOMITING; Start 04/12/17 at 11:30; Stop 04/13/17 at 11:29; Status DC Fentanyl Citrate (Fentanyl 2ml Vial) 25 mcg PRN Q5MIN PRN IV MILD PAIN; Start 04/12/17 at 11:30; Stop 04/13/17 at 11:29; Status DC Fentanyl Citrate (Fentanyl 2ml Vial) 50 mcg PRN Q5MIN PRN IV MODERATE PAIN Last administered on 04/12/17 14:08; Start 04/12/17 at 11:30; Stop 04/13/17 at 11:29; Status DC Morphine Sulfate 1 mg PRN Q10MIN PRN IV SEVERE PAIN; Start 04/12/17 at 11:30; Stop 04/13/17 at 11:29; Status DC Ringer's Solution 1,000 ml @ 30 mls/hr Q24H IV Last administered on 04/12/17 12:45; Start 04/12/17 at 11:29; Stop 04/12/17 at 23:28; Status DC Lidocaine HCl (Xylocaine-Mpf 1% Vial) 2 ml 1X PRN PRN ID IV START; Start at 11:30; Stop 04/13/17 at 11:29; Status DC Hydromorphone HCl (Dilaudid) 0.5 mg PRN Q10MIN PRN IV SEV PAIN, Second choice; Start 04/12/17 at 11:30; Stop 04/13/17 at 11:29; Status DC Prochlorperazine Edisylate (Compazine) 5 mg PACU PRN PRN IV NAUSEA, MRX1 Last administered on 04/12/17 13:34; Start 04/12/17 at 11:30; Stop 04/13/17 at 11:29 ; Status DC Cefazolin Sodium/ Dextrose 50 ml @ As Directed STK-MED ONCE IV ; Start 04/12/17 at 12:07; Stop 04/12/17 at 12:08; Status DC Cefazolin Sodium/ Dextrose 50 ml @ 100 mls/hr 1X ONCE IV Last administered on 04/12/17 12:20; Start 04/12/17 at 12:15; Stop 04/12/17 at 12:44; Status DC Neostigmine Methylsulfate (Bloxiverz) 10 mg STK-MED ONCE .ROUTE ; Start at 13:02; Stop 04/12/17 at 13:03; Status DC Glycopyrrolate (Robinul) 1 mg STK-MED ONCE .ROUTE ; Start 04/12/17 at 13:03; Stop 04/12/17 at 13:04; Status DC Vitals/I & O Vital Sign - Last 24 Hours 04/12/17 04/12/17 04/12/17 04/12/17 14:58 15:00 15:13 15:28 Pulse 71 74 64 Resp 16 16 16 B/P (MAP) 107/61 (76) 97/48 (64) 110/57 (74) Pulse Ox 95 95 98 O2 Delivery Room Air Room Air Room Air Room Air 04/12/17 04/12/17 04/12/17 04/12/17 15:45 15:45 15:58 16:15 Pulse 70 70 58 65 Resp 16 16 16 16 B/P (MAP) 96/56 (69) Pulse Ox 95 95 96 96 O2 Delivery Room Air Room Air Room Air Room Air 04/12/17 04/12/17 04/12/17 04/12/17 16:42 17:30 18:30 18:43 Pulse 65 71 68 Resp 16 16 16 B/P (MAP) 97/52 (67) 90/34 (52) 99/53 (68) Pulse Ox 95 96 93 O2 Delivery Room Air Room Air Room Air Room Air 04/12/17 04/12/17 04/12/17 04/12/17 19:20 19:44 20:00 22:28 Temp 97.5 97.5 Pulse 98 Resp 18 16 16 B/P (MAP) 106/61 (76) Pulse Ox 96 96 O2 Delivery Room Air Room Air Room Air Room Air O2 Flow Rate 10.0 04/12/17 04/12/17 04/13/17 04/13/17 22:35 23:28 03:06 03:33 Temp 98.8 98.4 98.8 98.4 Pulse 61 55 Resp 16 16 18 16 B/P (MAP) 126/43 (70) 90/52 (65) Pulse Ox 96 95 95 O2 Delivery Room Air Room Air Room Air 04/13/17 04/13/17 04/13/17 04/13/17 04:33 07:00 07:43 08:05 Temp 98.6 98.6 Pulse 86 Resp 16 18 B/P (MAP) 110/63 (79) Pulse Ox 95 99 O2 Delivery Room Air Room Air Room Air Room Air 04/13/17 04/13/17 04/13/17 09:27 11:00 12:42 Temp 97.7 97.7 Pulse 74 Resp 18 B/P (MAP) 102/55 (71) Pulse Ox 97 97 O2 Delivery Room Air Room Air Room Air Intake and Output 04/12/17 04/12/17 04/13/17 15:00 23:00 07:00 Intake Total 1050 ml 120 ml 560 ml Output Total 75 ml 300 ml Balance 975 ml 120 ml 260 ml CASTLE,NIAL K III DO Apr 13, 2017 14:50
[2017-04-13 15:00] VITALS: BP 103/57
--- NOTE | 2017-04-14 14:31 | PATHOLOGY ---
PATHOLOGY REPORT * * * * * * * * FINAL DIAGNOSIS: Ovarian tissue, laparoscopic right ovarian cystectomy: - Hemorrhagic luteinized cyst. - Small cystic follicle. (JPM:víctor; 04/14/2017) COMMENT: There is no evidence of endometriosis. There is no evidence of malignancy. REPORT ELECTRONICALLY SIGNED BY: Erick Garibay M.D. DATE/TIME: 04/14/2017 14:30 * * * * * * * * GROSS PATHOLOGY: The specimen is received in formalin, labeled "May Trinidad, right ovarian cyst wall," and consists of 2 cystic fragments of pink-soliz soft tissue measuring 1.7 x 1.7 x 0.1 cm and 1.5 x 0.8 x 0.4 cm. The cyst lining shows no papillary excrescences. They are entirely submitted in cassettes A1-A2. (SDY; 04/12/2017) INITIAL CPT CODE(S): A; 29920 Professional services performed [place] [facility] [address] Technical services performed by [facility] at [address] [place] [address]. SPECIMEN(S) RECEIVED: A.Right ovarian cyst wall CLINICAL HISTORY: Right ovarian cyst, pelvic pain PATIENT: MAY TRINIDAD /AGE: 801/01/1995 (Age: 22) PATIENT #: [id number] ALT CASE #: SPECIMEN COLLECTION DATE: 04/12/2017 SPECIMEN RECEIVED DATE: 04/12/2017 [facility] - [address] [place] [address] - PHONE: [phone] * * * END OF REPORT * * *
== END 2017-04-13 17:30 | disposition home or self-care (01) | DRG 743 ==
LOC: 4 NORTH 06:24
PROVIDERS: ADMIT Internal Medicine Hematology & Oncology; ATTEND Internal Medicine Hematology & Oncology
PROC: 0UB04ZZ Excision of Right Ovary, Percutaneous Endoscopic Approach (ICD-10-PCS; principal; 2017-04-12 12:00)
DX: N83.201 Unspecified ovarian cyst, right side (principal); F17.210 Nicotine dependence, cigarettes, uncomplicated; M54.9 Dorsalgia, unspecified
CPT/HCPCS: 36415; 76830; 76856; 80048; 85025; 88305; A4215; C1782; J0690; J0780; J1100; J2250; J2270; J2405; J2704; J2710; J3010; J3490; J7030; J7120; S0028; J2001